=== PATIENT | female | born 1945 | race Caucasian/White ===

== ENCOUNTER 2017-12-04 10:02 | Outpatient (CLI) | payer MEDICARE, BC ==
[2017-12-04 10:24] VITALS: BMI 31.6
[2017-12-04 11:32] LABS: #Basophils 0.1 thou/uL (0.0-0.2); #Eosinphils 0.7 thou/uL (0.0-0.7); #Lymphocytes 1.8 thou/uL (1.20-3.40); #Monocytes 0.7 thou/uL (0.11-0.59); #Neutrophils 3.8 thou/uL (1.40-6.50); %Basophils 0.7 % (0.0-1.0); %Lymphocytes 25.8 % (21.0-51.0); %Monocytes 9.6 % (0.0-10.0); %Neutrophils 53.9 % (42.0-75.0); Hemoglobin 12.7 g/dL (12.0-16.0); Mean Corpuscular HGB CONC 33.9 g/dL (32.0-36.0); Mean Corpuscular Hemoglobin 30.5 pg (27.0-31.0); Mean Corpuscular Volume 89.9 fl (81.0-99.0); Platelet Count 301 thou/uL (130-400); RBC Distribution Width 12.4 % (11.5-14.5); Red Blood Cell (RBC) Count 4.18 mill/uL (4.20-5.40); White Blood Cell (WBC) Count 7.1 thou/uL (4.8-10.8)
[2017-12-04 11:48] LABS: Anion Gap 12 mmol/L (10-20); BUN (Urea Nitrogen) 10 mg/dL (9.8-20.1); Calc. Creatinine Clearance 106 mL/min (70-130); Calcium 9.6 mg/dL (7.8-10.44); Carbon Dioxide 26 mmol/L (23-31); Chloride 105 mmol/L (98-107); Estimated GFR-MDRD 90; Glucose 104 mg/dL (83-110); Potassium 3.7 mmol/L (3.5-5.1); Sodium 139 mmol/L (136-145)
--- NOTE | 2017-12-05 19:08 | EKG ---
Test Reason : Blood Pressure : / mmHG Vent. Rate : 069 BPM Atrial Rate : 069 BPM P-R Int : 170 ms QRS Dur : 126 ms QT Int : 454 ms P-R-T Axes : 044 060 011 degrees QTc Int : 486 ms Sinus rhythm with Fusion complexes Non-specific intra-ventricular conduction block Possible Anterior infarct (cited on or before 18-JUL-2014) Abnormal ECG When compared with ECG of 18-JUL-2014 13:24, Fusion complexes are now Present QRS duration has increased Questionable change in initial forces of Anterior leads Confirmed by TODD MARTINEZ, SFady ([id number]) on 12/05/2017 7:07:35 PM Referred By: LEXIE Confirmed By:DR. Rakesh BROOKS MD
== END 2017-12-04 10:03 | disposition home or self-care (01) ==
LOC: LABBT 10:02
PROVIDERS: ATTEND Orthopaedic Surgery Hand Surgery
DX: Z01.812 Encounter for preprocedural laboratory examination (principal); M65.342 Trigger finger, left ring finger; R94.31 Abnormal electrocardiogram [ECG] [EKG]
CPT/HCPCS: 80048; 85025; 93005; 93010

== ENCOUNTER 2017-12-07 12:13 | Day surgery (SDC) | payer MEDICARE, BC ==
[2017-12-07] MEDS ORDERED: CEFAZOLIN/Water 2 GM/20 ML SYRINGE ONE (12:44)
[2017-12-07] MEDS ORDERED: Propofol 500 MG/50 ML VIAL ONE (13:43)
[2017-12-07] MEDS ORDERED: Midazolam HCl 2 mg/2 ml Vial ONE (13:46)
[2017-12-07] MEDS ORDERED: Fentanyl 100 MCG/2 ML VIAL ONE (13:49)
[2017-12-07] MEDS ORDERED: Bupivacaine PF 0.5% 30 ML VIAL ONE (13:51)
[2017-12-07] MEDS ORDERED: Bacitracin Zinc Ointment 30 gm TUBE ONE (13:51)
[2017-12-07] MEDS ORDERED: Lidocaine 2% Jelly 5 ML TUBE ONE (14:20)
[2017-12-07] MEDS ORDERED: Betamet Acet/Betamet Na Ph 30 MG/5 ML VIAL ONE (14:47)
[2017-12-07] MEDS ORDERED: Ketorolac Tromethamine 30 MG/ML VIAL ONE (15:21)
[2017-12-07] MEDS ORDERED: Propofol 200 MG/20 ML VIAL ONE (15:36)
--- NOTE | 2017-12-08 11:20 | OP ---
DATE OF SURGERY: 12/07/2017 PREOPERATIVE DIAGNOSES: Left ring finger tenosynovitis, flexor digitorum profundus, superficialis le ft ring finger trigger digit. POSTOPERATIVE DIAGNOSES: Left ring finger tenosynovitis, flexor digitorum profundus, superficialis l eft ring finger trigger digit with very thick tenosynovium, just proximal to the A1 kenn under the A1 kenn and tight A1 kenn at the ring finger, left. PROCEDURE PERFORMED: 1. Left ring finger trigger digit release. 2. Left ring finger flexor digitorum profundus, radical flexor tenosynovectomy. 3. Left ring finger flexor tendon superficialis, radical tenosynovectomy. ANESTHESIA: Standby with local sedation and a total of 10 mL of 0.5% local infiltrated block at the site, 0.5% Marcaine, no epinephrine. SPECIMEN REMOVED: Tenosynovium. ESTIMATED BLOOD LOSS: 10 mL. TOURNIQUET TIME: 10 minutes. DESCRIPTION OF PROCEDURE: After successful general endotracheal anesthesia, the limb prepped and idalia ped. The patient had a successful anesthesia as listed above. We waited 5 minutes after prepping an d draping and then exsanguinated the limb. Tourniquet inflated to 250 mmHg pressure and a longitudin al incision with slight V was made just ulna to the A1 kenn and centered on the kenn, skin, subcu taneous tissue, identified the neurovascular bundle and from the center field. There is th ick synovium, synechiae and very thick A1 kenn. We released the A1 kenn midline with [place] alejandro de under direct visualization. Then, I lifted the tendon up and performed a radical flexor tenosynov ectomy, flexor digitorum superficialis and profundus. We did not send the specimen for inflammatory evaluation. We then placed 3 mL of Celestone to wound, released the tourniquet, obtained hemostasis, closed the i ncision with interrupted 4-0 nylon in a mattress pattern. Bulky dressing was applied with Asad wrap a nd the patient left the operating room without evidence of anesthetic or operative complication.
== END 2017-12-07 15:57 | disposition home or self-care (01) ==
LOC: SDC 12:13
PROVIDERS: ATTEND Orthopaedic Surgery Hand Surgery
PROC: 0LN80ZZ Release Left Hand Tendon, Open Approach (ICD-10-PCS; principal; 2017-12-07)
DX: M65.342 Trigger finger, left ring finger (principal); I10 Essential (primary) hypertension; K21.9 Gastro-esophageal reflux disease without esophagitis; E07.9 Disorder of thyroid, unspecified; Z79.899 Other long term (current) drug therapy; Z98.890 Other specified postprocedural states
CPT/HCPCS: 96372; J0702; J1885; J2250; J2704; J3010; S0020

== ENCOUNTER 2019-08-15 10:15 | Outpatient (CLI) | payer MEDICARE, BC ==
--- NOTE | 2019-08-17 11:39 | RAD ---
Modified barium swallow HISTORY: Dysphagia, and pharyngeal phase. Gastroesophageal reflux disease without esophagitis. FINDINGS: Exam was performed by speech pathology with multiple consistencies. Video review is availab le and demonstrates good oral control, bolus formation, and retropulsion. Good initiation of swallowing. Mild penetration with thin barium liquids. Good clearance upon primary and secondary swal lows. No significant residua with liquids evident. Barium tablet was swallowed without difficulty. Lateral views showed a small irregular calcification projecting over the tonsils. The mid and distal esophagus were not evaluated. Fluoroscopy time 22 seconds. Please see separate detailed report from speech pathology.
== END 2019-08-15 10:16 | disposition home or self-care (01) ==
PROVIDERS: ATTEND Otolaryngology
DX: R13.13 Dysphagia, pharyngeal phase (principal); K21.9 Gastro-esophageal reflux disease without esophagitis; J45.901 Unspecified asthma with (acute) exacerbation; J20.9 Acute bronchitis, unspecified
CPT/HCPCS: 74230

== ENCOUNTER 2021-08-01 09:57 | Outpatient (CLI) | payer MEDICARE, BC ==
[2021-08-01 12:02] LABS: Bilirubin Neg (Negative); Blood, Urine 10 (Negative); Clarity Clear (Clear); Glucose, Urine (Dipstick) Normal (Negative); Ketone, Urine Negative (Negative); Leukocyte 25 (Negative); Nitrite Negative (Negative); Protein, Urine (Dipstick) Negative (Neg-Trace); Urobilinogen Normal mg/dL (Less than 2); pH, Urine 6.5 (5.0-9.0)
[2021-08-01 12:06] LABS: #Basophils 0.1 10x3/uL (0.0-0.2); #Eosinphils 0.7 10x3/uL (0.0-0.5); #Monocytes 0.8 10x3/uL (0.0-1.1); #Neutrophils 5.1 10x3/uL (1.5-8.4); %Basophils 1.1 % (0.0-2.0); %Eosinophils 8.2 % (0.0-6.0); %Lymphocytes 23.3 % (18.0-47.0); %Monocytes 9.5 % (0.0-10.0); %Neutrophils 57.7 % (40.0-75.0); Hemoglobin 13.3 g/dL (12.0-15.5); Mean Corpuscular HGB CONC 32.8 g/dL (32.0-36.0); Mean Corpuscular Volume 88.2 fl (81.6-98.3); Mean Platelet Volume 9.1 fl (7.4-10.4); Platelet Count 265 10x3/uL (150-450); RBC Distribution Width 13.4 % (11.5-14.5); Red Blood Cell (RBC) Count 4.59 10x6/uL (3.90-5.03); White Blood Cell (WBC) Count 8.8 10x3/uL (3.5-10.5)
[2021-08-01 12:12] LABS: INR-International Normal Ratio 0.9; Prothrombin Time 10.4 sec (9.5-12.1)
[2021-08-01 12:20] LABS: Bacteria/HPF Rare-Few HPF (None Seen); RBC/HPF 0-3 HPF (0-3); Squamous Epithelial 0-3 HPF (0-3); WBC/HPF 0-3 HPF (0-3)
[2021-08-01 12:28] LABS: Anion Gap 14 mmol/L (10-20); BUN (Urea Nitrogen) 11 mg/dL (9.8-20.1); Calc. Creatinine Clearance 0 mL/min (70-130); Calcium 9.3 mg/dL (7.8-10.44); Carbon Dioxide 25 mmol/L (23-31); Chloride 104 mmol/L (98-107); Glucose 95 mg/dL (83-110); Potassium 3.8 mmol/L (3.5-5.1); Sodium 139 mmol/L (136-145)
[2021-08-01 17:26] LABS: SARS-CoV-2 PCR by NAA Not Detected (NotDetected)
== END 2021-08-01 09:58 | disposition home or self-care (01) ==
LOC: LABBT 09:57
PROVIDERS: ATTEND Orthopaedic Surgery
DX: Z01.818 Encounter for other preprocedural examination (principal); M17.12 Unilateral primary osteoarthritis, left knee; Z20.822 Contact with and (suspected) exposure to COVID-19
CPT/HCPCS: 71046; 80048; 85025; 85610; 86850; 86900; 86901; 87081; 93005; U0003; U0005; 81003; 81015; 93010

== ENCOUNTER 2021-08-05 05:40 | Inpatient (IN) | payer MEDICARE, BC ==
[2021-08-01 12:02] LABS: Bilirubin Neg (Negative); Blood, Urine 10 (Negative); Clarity Clear (Clear); Glucose, Urine (Dipstick) Normal (Negative); Ketone, Urine Negative (Negative); Leukocyte 25 (Negative); Nitrite Negative (Negative); Protein, Urine (Dipstick) Negative (Neg-Trace); Urobilinogen Normal mg/dL (Less than 2); pH, Urine 6.5 (5.0-9.0)
[2021-08-01 12:06] LABS: #Basophils 0.1 10x3/uL (0.0-0.2); #Eosinphils 0.7 10x3/uL (0.0-0.5); #Monocytes 0.8 10x3/uL (0.0-1.1); #Neutrophils 5.1 10x3/uL (1.5-8.4); %Basophils 1.1 % (0.0-2.0); %Eosinophils 8.2 % (0.0-6.0); %Lymphocytes 23.3 % (18.0-47.0); %Monocytes 9.5 % (0.0-10.0); %Neutrophils 57.7 % (40.0-75.0); Hemoglobin 13.3 g/dL (12.0-15.5); Mean Corpuscular HGB CONC 32.8 g/dL (32.0-36.0); Mean Corpuscular Volume 88.2 fl (81.6-98.3); Mean Platelet Volume 9.1 fl (7.4-10.4); Platelet Count 265 10x3/uL (150-450); RBC Distribution Width 13.4 % (11.5-14.5); Red Blood Cell (RBC) Count 4.59 10x6/uL (3.90-5.03); White Blood Cell (WBC) Count 8.8 10x3/uL (3.5-10.5)
[2021-08-01 12:12] LABS: INR-International Normal Ratio 0.9; Prothrombin Time 10.4 sec (9.5-12.1)
[2021-08-01 12:20] LABS: Bacteria/HPF Rare-Few HPF (None Seen); RBC/HPF 0-3 HPF (0-3); Squamous Epithelial 0-3 HPF (0-3); WBC/HPF 0-3 HPF (0-3)
[2021-08-01 12:28] LABS: Anion Gap 14 mmol/L (10-20); BUN (Urea Nitrogen) 11 mg/dL (9.8-20.1); Calc. Creatinine Clearance 0 mL/min (70-130); Calcium 9.3 mg/dL (7.8-10.44); Carbon Dioxide 25 mmol/L (23-31); Chloride 104 mmol/L (98-107); Glucose 95 mg/dL (83-110); Potassium 3.8 mmol/L (3.5-5.1); Sodium 139 mmol/L (136-145)
[2021-08-01 17:26] LABS: SARS-CoV-2 PCR by NAA Not Detected (NotDetected)
[2021-08-02 11:14] VITALS: BMI 34.9
[2021-08-05] MEDS ORDERED: Fentanyl 100 MCG/2 ML VIAL ONE ×5 (06:17→09:52)
[2021-08-05] MEDS ORDERED: ceFAZolin 2 GM/DEX 5% 100 ML BAG ONE (06:22)
[2021-08-05] MEDS ORDERED: Sodium Chloride 0.9% 100 ML ONE (06:22)
[2021-08-05] MEDS ORDERED: Tranexamic Acid 1,000 MG/10 ML VIAL ONE ×2 (06:22→09:43)
[2021-08-05] MEDS ORDERED: Bupivacaine PF 0.5% 30 ML VIAL ONE (06:28)
[2021-08-05] MEDS ORDERED: Vancomycin 1.5 GRAM/300 ML BAG 1.5 GM in Premix Bag 1 BAG IVPB SCH (06:30)
[2021-08-05] MEDS ORDERED: Midazolam HCl 2 mg/2 ml Vial ONE (06:48)
[2021-08-05] MEDS ORDERED: PROPOFOL 200 MG/20 ML VIAL ONE (07:19)
[2021-08-05] MEDS ORDERED: Ondansetron PF 4 MG/2 ML Vial ONE (07:19)
[2021-08-05] MEDS ORDERED: Dexamethasone 20 MG/5 ML VIAL ONE (07:19)
[2021-08-05] MEDS ORDERED: Lidocaine 1% PF 5 ML VIAL ONE (07:19)
[2021-08-05] MEDS ORDERED: Bupivacaine HCl 0.5%/Epinephrine 1:200,000/PF 30 ml Vial ONE (07:19)
[2021-08-05] MEDS ORDERED: HYDROmorphone 2 MG/ML VIAL ONE (07:52)
[2021-08-05] MEDS ORDERED: Morphine 10 MG/ML VIAL ONE (07:53)
[2021-08-05] MEDS ORDERED: Ondansetron PF 4 MG/2 ML Vial IVP PRN ×2 (08:00→09:09)
[2021-08-05] MEDS ORDERED: Zolpidem Tartrate 5 MG TAB PO PRN ×2 (08:00→09:09)
[2021-08-05] MEDS ORDERED: traMADol HCl 50 MG TAB PO PRN ×2 (08:00)
[2021-08-05] MEDS ORDERED: Promethazine HCl 25 MG/ML VIAL IM PRN ×3 (08:00→09:25)
[2021-08-05] MEDS ORDERED: Ropivacaine 0.2% 550 ML 550 ML NERVE BLCK SCH (08:00)
[2021-08-05] MEDS ORDERED: diphenhydrAMINE 25 MG CAP PO PRN (09:09)
[2021-08-05] MEDS ORDERED: Acetaminophen 325 MG TAB PO PRN (09:09)
[2021-08-05] MEDS ORDERED: Tranexamic Acid 1,000 MG in Sodium Chloride 0.9% 100 ML IVPB SCH (09:15)
[2021-08-05] MEDS ORDERED: PACU-Morphine 4MG/ML VIAL SLOW IVP PRN (09:25)
[2021-08-05] MEDS ORDERED: Ondansetron HCl/PF 4 MG/2 ML Vial IVP PRN (09:25)
[2021-08-05] MEDS ORDERED: Promethazine HCl 25 MG/ML VIAL IVPB PRN (09:25)
[2021-08-05] MEDS ORDERED: Ketorolac Tromethamine 30 MG/ML VIAL ONE (09:52)
[2021-08-05] MEDS: Ketorolac Tromethamine 30 MG/ML VIAL IVP SCH ×3 (10:00→23:38)
[2021-08-05] MEDS ORDERED: diphenhydrAMINE 50 MG/ML VIAL ONE (10:11)
[2021-08-05] MEDS ORDERED: Morphine 4 MG/ML VIAL ONE ×2 (10:11→10:44)
[2021-08-05] MEDS ORDERED: Labetalol HCl 100 MG/20 ML VIAL ONE (10:48)
[2021-08-05] MEDS: Sodium Chloride 0.9% 1,000 ML IV SCH ×2 (11:35→20:21)
[2021-08-05] MEDS: Fentanyl 100 MCG/2 ML VIAL IV PRN (11:37)
[2021-08-05] MEDS ORDERED: FLU VACC QS2021-22(65YR UP)/PF 240 MCG/0.7 ML SYRINGE IM ONE (13:15)
[2021-08-05] MEDS: HYDROcodone/Acetaminophen 10/325 mg Tablet PO PRN ×2 (13:19→19:55)
[2021-08-05] MEDS ORDERED: ceFAZolin Sodium/D5W 2 GM in Premix Bag 1 BAG IVPB SCH (15:00)
[2021-08-05] MEDS: traZODone HCl 50 MG TAB PO SCH (19:56)
[2021-08-05] MEDS: Aspirin 81 mg Enteric Coated Tablet PO SCH (19:56)
[2021-08-05] MEDS: Losartan 25 MG TAB PO SCH (19:56)
[2021-08-05] MEDS: Atorvastatin Calcium 20 MG TAB PO SCH (19:56)
[2021-08-05] MEDS ORDERED: Vancomycin HCl 1.5 GM in Sodium Chloride 0.9% 250 ML 300 ML IVPB SCH (20:00)
[2021-08-05] MEDS ORDERED: CEFAZOLIN 2 GM, Admixture Fee 1 EACH in Sodium Chloride 0.9% 100 ML IVPB SCH (23:00)
[2021-08-06] MEDS: Sodium Chloride 0.9% 1,000 ML IV SCH ×2 (05:00→17:21)
[2021-08-06 05:22] LABS: Hemoglobin 11.2 g/dL (12.0-16.0); Mean Corpuscular HGB CONC 32.9 g/dL (32.0-36.0); Mean Corpuscular Hemoglobin 30.4 pg (27.0-31.0); Mean Corpuscular Volume 92.4 fL (78.0-98.0); Mean Platelet Volume 5.8 fL (7.4-10.4); Platelet Count 205 thou/uL (130-400); RBC Distribution Width 12.5 % (11.5-14.5); Red Blood Cell (RBC) Count 3.69 mill/uL (4.20-5.40); White Blood Cell (WBC) Count 7.6 thou/uL (4.8-10.8)
[2021-08-06] MEDS: Levothyroxine 150 MCG TAB PO SCH (05:38)
[2021-08-06] MEDS: Ketorolac Tromethamine 30 MG/ML VIAL IVP SCH ×3 (05:39→17:18)
[2021-08-06] MEDS: HYDROcodone/Acetaminophen 10/325 mg Tablet PO PRN ×4 (08:44→21:34)
[2021-08-06] MEDS: Ferrous Gluconate 324 MG TAB PO SCH ×2 (08:46→17:20)
[2021-08-06] MEDS: Aspirin 81 mg Enteric Coated Tablet PO SCH ×2 (08:46→20:32)
[2021-08-06] MEDS: Montelukast Sodium 10 mg Tablet PO SCH (08:46)
[2021-08-06] MEDS: Hydrochlorothiazide 25 MG TAB PO SCH (08:47)
[2021-08-06] MEDS: Multivitamin W/ Minerals 1 TAB PO SCH (08:47)
[2021-08-06] MEDS: Senokot S 8.6-50 MG TAB PO SCH ×2 (08:47→20:34)
[2021-08-06] MEDS ORDERED: guaiFENesin ER 600 MG TAB PO PRN (14:20)
[2021-08-06] MEDS: Losartan 25 MG TAB PO SCH (20:33)
[2021-08-06] MEDS: Atorvastatin Calcium 20 MG TAB PO SCH (20:33)
[2021-08-06] MEDS: traZODone HCl 50 MG TAB PO SCH (20:33)
[2021-08-07] MEDS: Ketorolac Tromethamine 30 MG/ML VIAL IVP SCH ×2 (00:03→05:38)
[2021-08-07] MEDS: Fentanyl 100 MCG/2 ML VIAL IV PRN (00:41)
[2021-08-07] MEDS: HYDROcodone/Acetaminophen 10/325 mg Tablet PO PRN ×3 (01:33→10:11)
[2021-08-07] MEDS: Sodium Chloride 0.9% 1,000 ML IV SCH (01:35)
[2021-08-07 04:25] LABS: Hemoglobin 10.7 g/dL (12.0-16.0); Mean Corpuscular HGB CONC 32.6 g/dL (32.0-36.0); Mean Corpuscular Volume 92.2 fL (78.0-98.0); Platelet Count 199 thou/uL (130-400); RBC Distribution Width 12.4 % (11.5-14.5); Red Blood Cell (RBC) Count 3.55 mill/uL (4.20-5.40); White Blood Cell (WBC) Count 8.4 thou/uL (4.8-10.8)
[2021-08-07] MEDS: Levothyroxine 150 MCG TAB PO SCH (05:38)
[2021-08-07] MEDS: Ferrous Gluconate 324 MG TAB PO SCH (10:09)
[2021-08-07] MEDS: Multivitamin W/ Minerals 1 TAB PO SCH (10:10)
[2021-08-07] MEDS: Hydrochlorothiazide 25 MG TAB PO SCH (10:10)
[2021-08-07] MEDS: Aspirin 81 mg Enteric Coated Tablet PO SCH (10:10)
[2021-08-07] MEDS: Montelukast Sodium 10 mg Tablet PO SCH (10:10)
[2021-08-07] MEDS: Senokot S 8.6-50 MG TAB PO SCH (10:12)
[2021-08-07 11:53] VITALS: BP 126/73; TEMP 97.8
== END 2021-08-07 13:10 | disposition home health service (06) | DRG 470 ==
LOC: SDC 05:40 → SJJU 11:24
PROVIDERS: ADMIT Orthopaedic Surgery; ATTEND Orthopaedic Surgery
PROC: 0SRD0J9 Replacement of Left Knee Joint with Synthetic Substitute, Cemented, Open Approach (ICD-10-PCS; principal; 2021-08-05)
PROC: 8E0YXBZ Computer Assisted Procedure of Lower Extremity (ICD-10-PCS; 2021-08-05)
DX: M17.12 Unilateral primary osteoarthritis, left knee (principal); Z20.822 Contact with and (suspected) exposure to COVID-19; I10 Essential (primary) hypertension; E78.5 Hyperlipidemia, unspecified; G47.30 Sleep apnea, unspecified; E03.9 Hypothyroidism, unspecified; Z96.651 Presence of right artificial knee joint; E66.9 Obesity, unspecified; Z28.21 Immunization not carried out because of patient refusal; Z82.3 Family history of stroke; Z82.49 Family history of ischemic heart disease and other diseases of the circulatory system; Z80.9 Family history of malignant neoplasm, unspecified; Z99.89 Dependence on other enabling machines and devices; Z68.35 Body mass index [BMI] 35.0-35.9, adult; Z79.899 Other long term (current) drug therapy; Z79.890 Hormone replacement therapy
CPT/HCPCS: 36415; 80048; 81003; 81015; 85025; 85027; 85610; 86850; 86900; 86901; 87081; A4306; C1713; C1776; J0690; J1100; J1170; J1200; J1885; J2250; J2270; J2405; J2704; J2795; J3010; J3370; J3490; J7050; S0020; U0003; U0005

== ENCOUNTER 2024-06-21 10:42 | Outpatient (CLI) | payer MEDICARE, BC ==
[2024-06-21 12:45] LABS: #Basophils 0.12 10x3/uL (0.0-0.2); %Basophils 1.6 % (0.0-1.0); %Eosinophils 6.2 % (0.0-10.0); %Lymphocytes 47.6 % (21.0-51.0); %Monocytes 8.1 % (0.0-10.0); %Neutrophils 36.2 % (42.0-75.0); Hematocrit 38.5 % (36.0-47.0); Hemoglobin 12.9 g/dL (12.0-16.0); Mean Corpuscular HGB CONC 33.5 g/dL (32.0-36.0); Mean Corpuscular Hemoglobin 31.2 pg (27.0-31.0); Platelet Count 209 10x3/uL (130-400); RBC Distribution Width 13.3 % (11.5-14.5); Red Blood Cell (RBC) Count 4.14 mill/uL (4.20-5.40)
[2024-06-21 12:58] LABS: INR-International Normal Ratio 0.9; Prothrombin Time 12.6 sec (12.0-14.7)
[2024-06-21 13:10] LABS: Anion Gap 13 mmol/L (10-20); BUN (Urea Nitrogen) 10 mg/dL (9.8-20.1); Calc. Creatinine Clearance 0 mL/min (70-130); Calcium 9.8 mg/dL (7.8-10.44); Carbon Dioxide 27 mmol/L (23-31); Chloride 105 mmol/L (98-107); Estimated GFR 88; Glucose 97 mg/dL (83-110); Potassium 3.7 mmol/L (3.5-5.1); Sodium 141 mmol/L (136-145)
== END 2024-06-21 10:43 | disposition home or self-care (01) ==
LOC: LABBT 10:42
PROVIDERS: ATTEND Orthopaedic Surgery
DX: Z01.818 Encounter for other preprocedural examination (principal); S46.812A Strain of other muscles, fascia and tendons at shoulder and upper arm level, left arm, initial encounter
CPT/HCPCS: 71046; 80048; 85025; 85610; 93005; 93010

== ENCOUNTER 2024-06-24 06:52 | Day surgery (SDC) | payer MEDICARE, BC ==
[2024-06-21 11:00] VITALS: BMI 32.4
[2024-06-24] MEDS ORDERED: PROPOFOL 20 ML ONE (08:13)
[2024-06-24] MEDS ORDERED: fentaNYL PF 100 MCG/2 ML SYRINGE ONE (08:13)
[2024-06-24] MEDS ORDERED: MINERAL OIL/WHITE PETROLATUM 3.5 GM TUBE ONE (08:16)
[2024-06-24] MEDS ORDERED: Midazolam HCl 2 mg/2 ml Vial ONE (08:28)
[2024-06-24] MEDS ORDERED: Ropivacaine 0.2% HCl/PF 20 ML ONE (08:28)
[2024-06-24] MEDS ORDERED: Ropivacaine 0.5% HCl/PF (150 MG/30 ML VIAL) ONE (08:28)
[2024-06-24] MEDS ORDERED: fentaNYL 50 mcg/mL 1 mL Vial ONE ×2 (08:28→12:06)
[2024-06-24] MEDS ORDERED: Vancomycin (BATCH) 1.5 GM/300 ML BAG ONE (08:29)
[2024-06-24] MEDS ORDERED: EPINEPHrine 1 MG/ML VIAL ONE (08:36)
[2024-06-24] MEDS ORDERED: Bupivacaine 0.25% HCL 30 ML VIAL ONE (08:36)
[2024-06-24] MEDS ORDERED: Rocuronium Bromide 10 MG/ML (10ML VIAL) ONE (09:14)
[2024-06-24] MEDS ORDERED: Zolpidem Tartrate 5 MG TAB PO PRN (09:15)
[2024-06-24] MEDS ORDERED: traMADol HCl 50 MG TAB PO PRN ×2 (09:15)
[2024-06-24] MEDS ORDERED: Promethazine HCl 25 MG/ML VIAL IM PRN (09:15)
[2024-06-24] MEDS ORDERED: HYDROcodone/Acetaminophen 10/325 mg Tablet PO PRN ×2 (09:15)
[2024-06-24] MEDS ORDERED: Ropivacaine 0.2% 550 ML 550 ML NERVE BLCK SCH (09:15)
[2024-06-24] MEDS ORDERED: Ondansetron PF 4 MG/2 ML Vial IVP PRN (09:15)
[2024-06-24] MEDS ORDERED: CEFAZOLIN 1 GM VIAL ONE (09:32)
[2024-06-24] MEDS ORDERED: Ondansetron PF 4 MG/2 ML Vial ONE (10:30)
[2024-06-24] MEDS ORDERED: SUGAMMADEX SODIUM 200 MG/2 ML VIAL ONE (10:39)
[2024-06-24] MEDS ORDERED: Ketorolac Tromethamine 30 MG (1 mL) VIAL IVP SCH (12:00)
== END 2024-06-24 13:55 | disposition home or self-care (01) ==
LOC: SDC 06:52
PROVIDERS: ATTEND Orthopaedic Surgery
PROC: 0LS44ZZ Reposition Left Upper Arm Tendon, Percutaneous Endoscopic Approach (ICD-10-PCS; principal; 2024-06-24)
PROC: 3E0T3BZ Introduction of Anesthetic Agent into Peripheral Nerves and Plexi, Percutaneous Approach (ICD-10-PCS; 2024-06-24)
DX: S46.812A Strain of other muscles, fascia and tendons at shoulder and upper arm level, left arm, initial encounter (principal); M75.42 Impingement syndrome of left shoulder; I10 Essential (primary) hypertension; K21.9 Gastro-esophageal reflux disease without esophagitis; E07.9 Disorder of thyroid, unspecified; Z79.890 Hormone replacement therapy; Z79.899 Other long term (current) drug therapy; Z87.19 Personal history of other diseases of the digestive system; W19.XXXA Unspecified fall, initial encounter
CPT/HCPCS: 23420; 23430; 64416; A4306; A6223; C1713 ×2; C1894; J0690; J2250; J2405; J2704; J2795 ×3; J3010; J3370; J0171; J0665

== ENCOUNTER 2024-08-23 17:30 | Emergency (ER) | payer MEDICARE, BC ==
[~2024-08-23 17:30] MED LIST: Iopamidol-370 76% 500 ML MDV (1 ML CHARGE) ONE
[2024-08-23 18:25] LABS: #Basophils 0.13 10x3/uL (0.0-0.2); %Eosinophils 4.8 % (0.0-10.0); %Monocytes 6.4 % (0.0-10.0); %Neutrophils 54.4 % (42.0-75.0); Hematocrit 37.3 % (36.0-47.0); Hemoglobin 12.7 g/dL (12.0-16.0); Mean Corpuscular Hemoglobin 30.5 pg (27.0-31.0); Mean Corpuscular Volume 89.7 fL (78.0-98.0); Mean Platelet Volume 9.1 fL (7.4-10.4); Platelet Count 195 10x3/uL (130-400); Red Blood Cell (RBC) Count 4.16 mill/uL (4.20-5.40)
[2024-08-23 18:39] LABS: ALT (SGPT) 9 U/L (8-55); AST (SGOT) 15 U/L (5-34); Albumin 3.8 g/dL (3.4-4.8); Alkaline Phosphatase 78 U/L (40-110); Anion Gap 13 mmol/L (10-20); BUN (Urea Nitrogen) 12 mg/dL (9.8-20.1); Bilirubin, Total 0.4 mg/dL (0.2-1.2); Calc. Creatinine Clearance 0 mL/min (70-130); Carbon Dioxide 22 mmol/L (23-31); Chloride 103 mmol/L (98-107); Estimated GFR 85; Globulin 3.4 g/dL (2.4-3.5); Glucose 107 mg/dL (83-110); Lipase 21 U/L (8-78); Potassium 3.8 mmol/L (3.5-5.1); Protein, Total 7.2 g/dL (5.8-8.1); Sodium 134 mmol/L (136-145)
[2024-08-23 18:47] LABS: Troponin I Less than 0.010 ng/mL (< 0.028)
[2024-08-23] MEDS ORDERED: Ondansetron PF 4 MG/2 ML Vial ONE (20:23)
[2024-08-23] MEDS ORDERED: Morphine 4 MG/ML VIAL ONE ×2 (20:38→21:58)
[2024-08-23] MEDS ORDERED: Ketorolac Tromethamine 30 MG (1 mL) VIAL ONE (20:38)
[2024-08-23 21:54] LABS: Bacteria/HPF None Seen HPF (None Seen); Bilirubin Negative (Negative); Blood, Urine Negative (Negative); CAUTI Indications for Culture Pelvic or flank pain; Clarity Clear (Clear); Glucose, Urine (Dipstick) Normal (Negative); Ketone, Urine Negative (Negative); Leukocyte Negative Leu/uL (Negative); Nitrite Negative (Negative); Protein, Urine (Dipstick) Negative (Neg-Trace); RBC/HPF 0-3 HPF (0-3); Squamous Epithelial 0-3 HPF (0-3); Urobilinogen Normal mg/dL (Less than 2); WBC/HPF 0-3 HPF (0-3); pH, Urine 6.5 (5.0-9.0)
[2024-08-23 22:01] LABS: Specific Gravity, Urine 1.046 (1.002-1.036)
[2024-08-23 22:02] LABS: Urine Culture Reflex No No
== END 2024-08-23 22:28 | disposition home or self-care (01) ==
LOC: ERS 17:30
DX: M54.50 Low back pain, unspecified (principal); E11.9 Type 2 diabetes mellitus without complications; I10 Essential (primary) hypertension
CPT/HCPCS: 71045; 74177; 76705; 80053; 81001; 83605; 83690; 84484; 85025; 93005; 96374; 96375; 96376; 99284; J1885; J2272; J2405; 36415